=== PATIENT | male | born 1965 | race Hispanic/Latino ===

== ENCOUNTER 2021-11-25 09:26 | Outpatient (CLI) | payer OTHER ==
[2021-11-25 10:43] LABS: Albumin 4.6 g/dL (3.9-5); Calcium 9.2 mg/dL (8.4-10.2)
== END 2021-11-25 09:27 | disposition home or self-care (01) ==
LOC: LAB 09:26
PROVIDERS: ATTEND Internal Medicine
DX: Z02.71 Encounter for disability determination (principal)
CPT/HCPCS: 36415; 80053

== ENCOUNTER 2022-03-04 09:35 | Outpatient (CLI) | payer OTHER ==
--- NOTE | 2022-03-04 11:17 | XRay Report ---
Bilateral shoulder INDICATION: Pain FINDINGS: Glenohumeral joints and AC joints appear intact bilaterally. No acute fracture or dislocati on. Clavicles appear normal. No definite soft tissue abnormality is seen. Bilateral wrist INDICATION: Pain FINDINGS: Degenerative changes seen in the radiocarpal joint of the right wrist and left wrist with j oint space narrowing. Several areas of erosive changes seen within the left wrist above the scaphoid and distal radius some lucencies along the subchondral region. Joint space narrowing and left wrist i s seen throughout degenerative change throughout the carpal bones. Mild soft tissue swelling througho ut the left breast. 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 Significant degenerative change in left wrist with eros anna changes throughout the carpal bones and distal radius. Joint space narrowing throughout the left breast. Bilateral hips INDICATION: Pain FINDINGS: Alignment appears normal in bilateral knees. Degenerative change at the tibial tuberosity b ilaterally. No large joint effusion is seen. No acute fracture is identified. Bilateral hips INDICATION: Hip pain FINDINGS: [id number] degenerative change bilateral hips and joint space narrowing. No acute fra cture dislocation. Superior and inferior pubic rami appear intact. Mild degenerative change in the ri ght lesser trochanter Signer Name: Arnulfo Willingham MD Signed: 03/04/2022 11:13 AM Workstation Name: [facility] [employer]
== END 2022-03-04 09:36 | disposition home or self-care (01) ==
LOC: XRAY 09:35
PROVIDERS: ATTEND Internal Medicine
DX: M19.032 Primary osteoarthritis, left wrist (principal); M19.031 Primary osteoarthritis, right wrist; M17.0 Bilateral primary osteoarthritis of knee; M79.89 Other specified soft tissue disorders; M16.0 Bilateral primary osteoarthritis of hip; M25.111 Fistula, right shoulder; M25.512 Pain in left shoulder
CPT/HCPCS: 73521